=== PATIENT | female | born 1995 | race Caucasian/White ===

== ENCOUNTER 2017-01-13 13:56 | Emergency (ER) | payer MEDICAID ==
[~2017-01-13] VITALS: Ht 162.6 cm; Wt 108.9 kg
[~2017-01-13 13:56] MED LIST: AMOXICILLIN 50500 MG PO; AMOXICILLIN/CLA1 TA1 PO; MEDROL 4MG. DOSE4 MG PO; PHENERGAN 25MG.25 M1 PO; TYLENOL ES500 MG PO
--- NOTE | 2017-01-13 14:38 | Emergency Room Report ---
History of Present Illness Time Seen by MD Galan Presenting Problem in Triage Pt arrived:Walked Presenting Problem:PT STATES SHARP PAIN TO LOWER RIGHT SIDE THAT BEGAN APPROX 4 DAYS AGO AND LIGHT LEFT SIDE PAIN. STATES HEAVY VAGINAL BLEEDING THAT BEGAN YESTERDAY. 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 N Clinical Suspician of Infection? N Mental Status: 1 - Regular (Normal Baseline) Sepsis Risk:Low Sepsis Risk Have you (or family members/close friends) recently traveled outside the [place]? N If Yes, where/when: Have you had exposure to infectious disease within the past month? TB? Other? Specify: Acute, sharp, intermittent RLQ abdominal pain, onset three days ago followed by vaginal bleeding, LMP one month ago, not using contraception, no vaginal discharge or urinary sx. Pain nonradiating, eating well. ALLERGIES Coded Allergies: No Known Allergies (01/13/17) Home Medications Reported Medications No Known Home Medications History Medical History General CAD? No Angina: No CT: No Hypertension? No Hyperlipidemia? No CHF? No DVT? No PE? No COPD? No Asthma? No Anemia? No GERD? No Gastric ulcers? No GI Bleed? No Hernia? No Thyroid Problems? No Hypothyroidism? No CVA? No Seizures? No Diabetes? No Renal Insuffiency? No End Stage Renal Disease? No UTI? No Stones? No BPH? No GB Disease: No Nephritic Syndrome? No Asplenia? No Hepatitis? No Sickle Cell Disease? No Arthritis? No Migraines? No Cataracts? No Glaucoma? No MRSA? No HIV? No TB? No Anxiety? No Depression? No Cancer? 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 Physical Exam Vital Signs Vital Signs Date Time Temp Pulse Resp B/P Pulse O2 O2 Flow FiO2 Ox Delivery Rate 01/13 1511 85 20 131/74 99 01/13 1419 98.1 89 20 136/74 99 01/13 1412 98.1 89 20 136/74 99 General Appearance normal appearance, WD/WN, no apparent distress Eye Exam - bilateral eye normal exam, bilateral eye PERRL, bilateral eye EOMI Neck normal inspection, non-tender, supple Respiratory Status Yes: trachea midline. No: respiratory distress. Cardiovascular no peripheral edema Gastrointestinal normal bowel sounds, normal exam, non tender, soft, no organomegaly, no pulsatile mass, no guarding, no rebound Pelvic normal external exam, normal internal exam, normal adnexa, no cerv. motion tender, no masses, vaginal bleeding (scant VB, cvx closedthickhigh) Neurologic alert, normal exam, no motor/sensory deficits, oriented x 3 Medical Decision Making LABS/Meds/Orders Pt receiving controlled substance in ED? No Results/Orders Laboratory Tests 01/13/17 1440: Sodium 141, Potassium 3.3 L, Chloride 105, Carbon Dioxide 29, BUN 9, Creatinine 0.7, Estimated Creat Clear 218 H, Estimated GFR (MDRD) 106, Glucose 95, Calcium 8.5, Total Bilirubin 0.3, AST 12 L, ALT 36, Alkaline Phosphatase 80, Total Protein 7.3, Albumin 3.8, Globulin 3.5 H, Albumin/Globulin Ratio 1.1, WBC 7.5, RBC 4.57, Hgb 13.8, Hct 39.8, MCV 87.1, RDW 12.5, Plt Count 238, MPV 5.6 L, Gran % 63.5, Gran # 4.8, Lymphocytes % 29.5, Monocytes % 5.5, Eosinophils % 1.1, Basophils % 0.4, Lymphocytes # 2.2, Monocytes # 0.4, Eosinophils # 0.1, Basophils # 0.0, PUBS MCHC 34.6, MCH 30.1 01/13/17 1430: Urine Color YELLOW, Urine Appearance CLEAR, Urine pH 7.5, Ur Specific [place] 1.015, Urine Protein TRACE H, Urine Ketones NEGATIVE, Urine Blood 3+ H, Urine Nitrate NEGATIVE, Urine Bilirubin NEGATIVE, Urine Urobilinogen 1.0, Ur Leukocyte Esterase NEGATIVE, Urine RBC TNTC, Urine WBC NONE, Urine Bacteria 1+, Urine Glucose NEGATIVE Current Medication Orders Sig/Marisela Start time Last Medication Dose Route Stop Time Status Admin Sodium Chloride 10 ML PRN PRN 01/13 143 AC IV 01/14 142 Orders Procedure Date/time Status DIET-NOTHING BY MOUTH 01/13 D Active US PELVIS-TRANSVAGINAL ONLY 01/13 1437 Active WET PREP 01/13 1436 Complete ERIC PREP 01/13 1436 Complete CHL/GC URINE 01/13 1436 Active IV SALINE LOCK 01/13 1422 Active URINALYSIS/COMPLETE 01/13 1422 Complete URINE 01/13 1422 Complete CBC WITH AUTO DIFF 01/13 142 Complete CHEM 12 PROFILE 01/13 142 Complete XRAY/CT/US XRAY/CT/US Ultrasound pelvis US Interpretation by reviewed by me (d/w tech) US results normal (good ov flow;polycystic ov), no free fluid Departure Departure Time of Disposition 1557 Disposition DC Home or Self Care(routine) Clinical Impression Primary Impression: Menorrhagia Qualifiers: Menorrahagia type: with regular cycle Qualified Code: N92.0 - Excessive and frequent menstruation with regular cycle Secondary Impressions: Acute pelvic pain, female, Polycystic ovaries Condition STABLE Referrals Jos PEREIRA,[facility] Patient Instructions Heavy Menstrual Bleeding Additional Instructions See Dr. Arguello for follow up for polycystic ovaries. Rx Naproxen Discharge Counseling Counseled pt/family regarding diagnosis, test results, medications/RX, home care, follow up needs Prescriptions Current Visit Scripts NAPROXEN (NAPROXEN 500MG TAB) 500 MG PO BIDP PRN cramping #20 TAB ED Critical Care Critical Care No at 1605
[2017-01-13 14:39] LABS: URINE BILIRUBIN - DIPSTICK NEGATIVE (NEG); URINE BLOOD 3+ (NEG)
[2017-01-13 14:52] LABS: HEMOGLOBIN 13.8 g/dL (12.2-16.2); LYMPH # 2.2 K/mm3 (0.7-4.5); LYMPH % 29.5 % (10-50.0)
[2017-01-13] MEDS ORDERED: NAPROXEN SODIU500 MG PO (16:04)
[2017-01-13 16:09] VITALS: BP 131/74
--- NOTE | 2017-01-13 17:31 | RADIOLOGY REPORT PS360 ---
US PELVIS-TRANSVAGINAL ONLY HISTORY: Vaginal bleeding with right lower quadrant pain VB pelvic pain ORDERING PHYSICIAN: Melinda Wilson MD PATIENT AGE: 21 years COMPARISON: None FINDINGS: The uterus measures 9 x 4.4 x 6 cm. The endometrium is somewhat thickened at 11 mm. No uterine mass. Right ovary 2.6 x 2.3 cm with multiple small follicles. Left ovary 2.7 x 2.3 cm with multiple small peripheral follicles. No cul-de-sac fluid evident. IMPRESSION: 1. The ovaries have a polycystic appearance but are not enlarged. 2. Mildly thickened endometrium
[2017-01-19 09:37] LABS: Neisseria gonorrhoeae, NAA Negative (Negative)
== END 2017-01-13 16:09 | disposition home or self-care (01) ==
LOC: UTC 13:56 → ER 14:04 → UTC 14:04 → ER 16:09
PROVIDERS: Emergency Medicine
DX: N92.0 Excessive and frequent menstruation with regular cycle (principal); R10.2 Pelvic and perineal pain; E28.2 Polycystic ovarian syndrome; Z72.0 Tobacco use

== ENCOUNTER → 2017-06-10 | Outpatient (CLI) | payer MEDICAID ==
[~2017-06-10] MED LIST changes: +NAPROXEN SODIU500 MG PO
[2017-06-10 10:39] LABS: HEMOGLOBIN 12.8 g/dL (12.2-16.2); LYMPH % 25.6 % (10-50.0)
[2017-06-10 15:41] LABS: ABO BLOOD TYPE O; RH BLOOD TYPE NEGATIVE
[2017-06-10 19:16] LABS: AMPHETAMINES/METAMPHETAMINES NEGATIVE ng/mL (<1000)
[2017-06-11 08:46] LABS: HBsAg Screen Negative (Negative); HIV Screen 4th Generation wRfx Non Reactive (Non Reactive); Rapid Plasma Reagin, Quant Non Reactive (NonRea<1:1); Rubella Antibodies, IgG 1.61 index (Immune >0.99)
== END ==
LOC: LAB 09:40
PROVIDERS: Obstetrics & Gynecology
DX: Z36.89 Encounter for other specified antenatal screening (principal); Z34.80 Encounter for supervision of other normal pregnancy, unspecified trimester
CPT/HCPCS: G0432